=== PATIENT | female | born 1965 | race Caucasian/White ===

== ENCOUNTER 2018-02-10 19:25 | Emergency (ER) | payer OTHER ==
[2018-02-10] MEDS: DEXAMETHASONE 10 MG/ML 1 ML INJ IM (20:29)
[2018-02-10] MEDS: IPRATROPIUM (NEB) 0.5 MG/2.5 ML AMP NEB (20:38)
[2018-02-10] MEDS: ALBUTEROL 0.083% (NEB) 2.5 MG/3 ML AMP NEB (20:39)
[2018-02-10] MEDS: ACETAMINOPHEN 500 MG TAB PO (21:39)
== END 2018-02-10 22:41 | disposition home or self-care (01) ==
LOC: FTE 19:25
DX: J40 Bronchitis, not specified as acute or chronic (principal)
CPT/HCPCS: 71045; 93005; 94664; 96372; 99284-25